=== PATIENT | male | born 1945 | race Caucasian/White ===

== ENCOUNTER 2016-06-26 10:57 | Day surgery (SDC) | payer MEDICARE ==
[~2016-06-26 10:57] MED LIST: ACETAMINOPHEN WITH CODEINE 1 EACH TABLET PO PRN; KETOROLAC TROMETHAMINE 15 MG/ML VIAL IV PRN; ceFAZolin SODIUM 1 GM in DEXTROSE 5 % IN WATER 100 ML IV PRN; oxyCODONE HCL/ACETAMINOPHEN 1 TAB TABLET PO PRN
--- OUTSIDE RECORDS SUMMARY | 2016-06-26 11:00 | XMS REPORT | Continuity of Care Document ---
:1945 Author Organization [facility] ([facility]) Address [address] [place] [address] Phone [phone] Care Team Providers Name Role Phone Aria Solomon Primary Care Provider [phone] Source Comments This disclosure is being made pursuant to the Care Everywhere program, applicable federal and state laws, and may not contain all informaitonavailable regarding this patient.[facility] ([facility]) Active Allergies and Adverse Reactions Allergen Noted Date Severity Reactions Comments Latex, Natural Rubber Urticaria (Hives) Non-Med Tape Urticaria (Hives) paper tape ok Penicillins Angioedema Tetanus Toxoid, Adsorbed Urticaria (Hives) Current Medications Prescription Sig. Disp. Refills Start Date End Date Status lisinopril (PRINIVIL) 10 take 10 mg by mouth Active mg tablet daily. METOPROLOL SUCCINATE PO Take 25 mg by mouth. Active pravastatin (PRAVACHOL) take 40 mg by mouth Active 40 mg tablet daily. ASPIRIN/MAG CARB/AL Take 81 mg by mouth. Active AMINOACET (ASPIRIN, BUFFERED PO) VIT A/VIT C/VIT take by mouth. Active E/ZINC/COPPER (VIT A,C,F-IURE-WTUDCR) 14,[id number] [id number] Cap MULTIVITAMINS take by mouth. Active (MULTI-VITAMIN HI-PO PO) Dextran 70-Hypromellose instill onto the Active (NATURAL TEARS, PF,) left eye 2 times 0.1-0.3 % Dpet daily. NAPROXEN SODIUM (ALEVE Take by mouth. Active PO) prednisoLONE acetate 1 % instill 1 Drop onto 5 mL 6 07/09/2011 Active ophthalmic suspension the left eye daily. Indications: PTK + corneal transplant Ranitidine HCl 300 mg Take by mouth. Active Cap Active Problems Problem Noted Date Epiretinal membrane, left eye 08/08/2010 Refractive error 08/08/2010 Presbyopia 08/08/2010 MGD (meibomian gland disease) 08/08/2010 Dry eye syndrome 08/08/2010 Retinal Detachment left eye; s/p surgical repair 12/13/2008 Overview: Partially mac on. 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 12/13/2008 Overview: 12/11/08 Os for PBK Pseudophakia both eyes 12/13/2008 Overview: OD OS Social History Tobacco Use Types Packs/Day Years Used Date Never Smoker Alcohol Use Drinks/Week oz/Week Comments No Last Filed Vital Signs Vital Sign Reading Time Taken Blood Pressure 117/70 10/28/2009 3:00 PM CDT Pulse 70 10/28/2009 3:00 PM CDT Temperature 37.1 C (98.8 F) 10/28/2009 2:25 PM CDT Respiratory Rate 16 10/28/2009 3:00 PM CDT Height 1.803 m (5' 11") 10/10/2009 4:26 PM CDT Weight 119.6 kg (263 lb 10.7 oz) 10/28/2009 12:28 PM CDT Body Mass Index 36.79 10/28/2009 12:28 PM CDT Oxygen Saturation 97% 10/28/2009 3:00 PM CDT Plan of Care Health Maintenance Due Date Last Done Comments Hepatitis B Vaccine (1 of 3 - Primary Series) 1945 Lipid Disorder Screening 1961 Colonoscopy 01/23/1993 Prostate Cancer Screening 1993 Zoster Vaccine 2003 Pneumococcal Vaccine (1 of 2 - PCV13) 01/25/2008 Influenza Vaccine: Seasonal (#1) 12/16/2015 Results from Last 3 Months Not on file
[2016-06-26] MEDS ORDERED: RINGERS SOLUTION,LACTATED 1,000 ML IV ONE ×3 (11:30→15:10)
[2016-06-26] MEDS: MORPHINE SULFATE 2 MG/ML DISP.SYRIN IV PRN ×2 (14:05→14:29)
[2016-06-26 15:51] VITALS: BP 144/79
== END 2016-06-26 10:58 | disposition home or self-care (01) ==
LOC: AMB 10:57
PROVIDERS: ATTEND Urology
PROC: BT1DZZZ Fluoroscopy of Right Kidney, Ureter and Bladder (ICD-10-PCS; 2016-06-26)
PROC: 0TP98DZ Removal of Intraluminal Device from Ureter, Via Natural or Artificial Opening Endoscopic (ICD-10-PCS; principal; 2016-06-26 12:00)
DX: N20.0 Calculus of kidney (principal); I10 Essential (primary) hypertension; E78.00 Pure hypercholesterolemia, unspecified; E66.9 Obesity, unspecified; Z68.37 Body mass index [BMI] 37.0-37.9, adult

== ENCOUNTER 2016-06-28 22:23 | Emergency (ER) | payer MEDICARE ==
[2016-06-28 22:35] VITALS: BP 144/92
--- NOTE | 2016-06-28 23:40 | ERNOTE ---
Abdominal HPI - Narrative Date of Service: 06/28/16 - General Chief Complaint: Constipation Time Seen by Provider: 06/28/16 23:36 Source: patient, family Exam Limitations: no limitations - Immun/Allergies/Home Medications Immunizatons: IMMUNIZATION HX Immunizations Up to Date Yes History of Influenza Vaccine No Allergies/Adverse Reactions: Allergies tetanus & diphtheria toxoids [Tetanus&Diphtheria Toxoid] Allergy (Intermediate, Verified 06/26/16 11:19) WHOLE ARM SWELLED UP Penicillins Allergy (Mild, Verified 06/26/16 11:19) Hives atorvastatin calcium [From Lipitor] Adverse Reaction (Mild, Verified 06/26/16 11 :19) Diarrhea levofloxacin [From Levaquin] Adverse Reaction (Mild, Verified 06/26/16 11:19) UPSET STOMACH tape Allergy (Mild, Uncoded 06/26/16 11:19) RASH Home Medications: HOME MEDICATIONS Lisinopril 10 mg PO DAILY 10/27/13 [Last Taken 06/26/16 09:00] Omeprazole [Prilosec] 40 mg PO DAILY 06/20/14 [Last Taken Unknown] Ascorbic Acid [Vitamin C] 500 mg PO DAILY 10/02/15 [Last Taken Unknown] Pravastatin Sodium [Pravachol] 20 mg PO HS 10/02/15 [Last Taken Unknown] Ferrous Sulfate, Dried [Iron] 159 mg PO Q2D 06/24/16 [Last Taken Unknown] Finasteride [Proscar] 5 mg PO DAILY 06/24/16 [Last Taken Unknown] Gabapentin [Neurontin] 300 mg PO TID 06/24/16 [Last Taken Unknown] Metoprolol Succinate [Toprol Xl] 50 mg PO DAILY 06/24/16 [Last Taken 06/26/16 09 :00] Oxybutynin Chloride [Ditropan] 5 mg PO TID PRN 06/24/16 [Last Taken Unknown] prednisoLONE ACETATE [Pred Forte 1%] 1 drop OP DAILY 06/24/16 [Last Taken Unknown] Bisacodyl [Dulcolax Suppository] 10 mg RC BID PRN #10 supp.rect 06/29/16 [Last Taken Unknown] Magnesium Citrate 295 ml PO BID #2 solution 06/29/16 [Last Taken Unknown] - History of Present Illness Date (Duration): 06/28/16 Time (Timing): 23:37 Timing: constant - "wenot were not indoor K did make sense oral contrast.Freedom Sims we have pushed from a cardiac Quality: moderate - radiologist will always want certain this is a CT with IV contrast and will get labs and x-ray and tolerate IV contrast Activities at Onset: other - patient 71-year-old male with large ureteral and kidney stone for which he had cystoscopy with attempted retrieval last Wednesday. Apparently they are unable to remove ureteral stone so they placed a stent. On Wednesday this week they reattempted cystoscopy with retrieval and again unable to remove large stone which they felt was embedded in the kidney itself. They did remove ureteral stone at that time. Patient here because he's had abdominal pain and fullness. He's had some loose stools on but no BM since that time. Because his abdomen is somewhat distended and that he might be constipated. He is also been developing nausea without vomiting over the last 24 hours. Patient has been using Tylenol No. 3 for pain relief as well as stool softeners. Modifying Factors - (Improves): Present: other - nothing has improved his abdominal fullness and pain Modifying Factors - (Worsens): Present: analgesics Associated Symptoms: Present: diarrhea-mucous - patient has passed a few loose stools on but no solid BM, nausea, vomiting - Patient's Past Medical History Patient History - Medical: GERD, Osteoarthritis, Other Patient History - Cardiac/Respiratory: Coronary Heart Disease, Hypertension, Hyperlipidemia, Myocardial Infarction, Other Patient History - Cancer: No Hx of Cancer Patient History - Surgical Procedures: Cataracts, Total Knee Replacement, Other Patient History - Other: None - Family History Mother Family History - Medical: , No pertinent hx Family History - Cardiac/Respiratory: Myocardial Infarction Family History - Cancer: No pertinent family hx Father Family History - Medical: , No pertinent hx Family History - Cardiac/Respiratory: Myocardial Infarction Family History - Cancer: No pertinent family hx Brother Family History - Medical: Diabetes Type 2 Family History - Cardiac/Respiratory: CVA/Stroke, Myocardial Infarction Family History - Cancer: No pertinent family hx - Social History Living Situations: spouse Abuse History: No History of abuse Psych History: No pertinent hx Smoking Status: Never smoker Have you smoked in the past 12 months: No Do you dip or chew tobacco: No Alcohol Use: none Drug Use: none - Immunizations Immunizations Up to Date: Yes History of Influenza Vaccine: No ED Progress - Date and Time Seen: Date and Time: 06/29/16 01:19 Patient last reviewed and patient has gradual increase in his creatinine without elevation of his BUN. Patient given 1 L normal saline here in the ER. CT scan performed abdomen and pelvis without contrast showing mild right hydronephrosis hydroureter and perinephric stranding suggestive of obstructive uropathy however no obstructing calculus seen. Borderline dilation proximal jejunal and a few colonic loops nonspecific probably incidental diverticulosis mild right colonic fecal retention. Prior to procedure rectal exam performed showing no impaction in the rectum. Patient will be discharged with recommendations to push fluids 6-8 large glasses of water daily with a repeat kidney function test in 1 week by primary care provider. For his constipation will provide magnesium citrate orally and Dulcolax suppository which he may use every 12 hours until he has a large BM. 06/29/16 01:24 Laboratory Results - last 24 hr 06/28/16 06/28/16 00:09 00:09 WBC 11.8 H RBC 4.70 Hgb 15.7 Hct 44.2 MCV 94.0 MCH 33.4 H MCHC 35.5 RDW 12.6 Plt Count 172 MPV 9.8 H Immature Gran % (Auto) 0.40 Immature Gran # (Auto) 0.05 H Neutrophils % 74.7 Lymphocytes % 12.7 L Monocytes % 10.7 H Eosinophils % 0.9 Basophils % 0.6 Nucleated RBC % 0.0 Neutrophils # 8.8 H Lymphocytes # 1.5 Monocytes # 1.3 H Eosinophils # 0.1 Absolute Basophils 0.1 Sodium 140 Plasma Sodium 141 Potassium 4.1 Chloride 103 Carbon Dioxide 27.7 Anion Gap 13.4 BUN 23 Creatinine 2.19 H D Est GFR (Non-Af Amer) 32 L D BUN/Creatinine Ratio 10.5 Random Glucose 145 H Calcium 9.3 Calcium Adj for Albumin 9.2 Total Bilirubin 1.1 AST 16 ALT 16 L Alkaline Phosphatase 70 Total Protein 7.4 Albumin 3.7 - Results and Orders Patient's Lab Results:: I have reviewed the patient's lab results. - Vital Signs Patient's Vital Signs:: I have reviewed the patient's vital signs. Vital Signs: Vital Signs 06/28/16 22:30 Temperature 36.8 C Pulse Rate 89 Respiratory 16 Rate Blood Pressure 144/92 O2 Sat by Pulse 95 Oximetry - Progress/Reassessment Chief Complaint: Constipation Departure - Departure Clinical Impression: Constipation, Renal failure (ARF), acute on chronic Disposition: Home self-care Condition: Good Instructions: Constipation, , Acute Kidney Injury Additional Instructions: Please push 6-8 glasses of water daily. He will need to be reexamined with a repeat kidney function test by a primary doctor in 1 week. For constipation take magnesium citrate orally while taking Dulcolax suppository rectally. If no large bowel movement repeat in 12 hours. Follow-up with the primary doctor or here if still having problems 24-48 hours. Referrals: Aria Solomon MD [Primary Care Provider] - Prescriptions: Bisacodyl [Dulcolax Suppository] 10 mg RC BID PRN #10 supp.rect PRN Reason: Constipation Magnesium Citrate 295 ml PO BID #2 solution
--- OUTSIDE RECORDS SUMMARY | 2016-06-28 23:45 | XMS REPORT | Continuity of Care Document ---
:1945 Author Organization [facility] ([facility]) Address [address] [place] [address] Phone [phone] Care Team Providers Name Role Phone Aria Solomon Primary Care Provider [phone] Source Comments This disclosure is being made pursuant to the Care Everywhere program, applicable federal and state laws, and may not contain all informaitonavailable regarding this patient.[facility] ([facility]) Active Allergies and Adverse Reactions Allergen Noted [...] C/VIT take by mouth. Active E/ZINC/COPPER (VIT A,C,P-LUMW-PDGXSS) 14,320-226-200 [id number] Cap MULTIVITAMINS take by mouth. Active (MULTI-VITAMIN [...]
[2016-06-29 00:13] LABS: Hematocrit 44.2 % (42.0-52.0); Hemoglobin 15.7 gm/dL (13.5-18.0); Mean Corpuscular Hemoglobin 33.4 pg (27-31); Mean Corpuscular Hgb Conc 35.5 g/dl (32-36); Mean Platelet Volume 9.8 fl (6.0-9.5); Neutrophil # 8.8 K/mm3 (1.3-6.0); Neutrophil % 74.7 % (42-75.0); Platelet Count 172 K/mm3 (150-450); Red Cell Distribution Width 12.6 % (11.5-14.0); White Blood Count 11.8 K/mm3 (4.0-10.5)
[2016-06-29 00:26] LABS: Albumin * 3.7 gm/dl (3.4-5.0); Anion Gap 13.4 mmol/L (6.8-13.8); BUN/Creatinine Ratio 10.5 (9.0-21.6); Bilirubin, Total 1.1 mg/dL (0.0-1.1); Ca. Corrected For Albumin 9.2 mg/dL (8.4-10.2); Calcium * 9.3 mg/dL (7.9-10.9); Carbon Dioxide 27.7 mmol/L (24-32.6); Potassium 4.1 mmol/L (3.4-4.6); Total Protein 7.4 gm/dL (6.2-8.2)
[2016-06-29] MEDS ORDERED: NORMAL SALINE 1,000 ML IV PRN (00:48)
[2016-06-29] MEDS ORDERED: ONDANSETRON HCL/PF 2 MG/ML VIAL IV ONE (00:48)
[2016-06-29] MEDS ORDERED: ONDANSETRON HCL/PF 2 MG/ML VIAL ONE (00:57)
== END 2016-06-29 01:35 | disposition home or self-care (01) ==
LOC: ER 22:23
DX: K59.00 Constipation, unspecified (principal); N17.9 Acute kidney failure, unspecified; N18.9 Chronic kidney disease, unspecified

== ENCOUNTER 2016-11-03 02:48 | Emergency (ER) | payer MEDICARE ==
[2016-11-03] MEDS ORDERED: KETOROLAC TROMETHAMINE 30 MG/ML VIAL IV ONE (03:07)
[2016-11-03] MEDS ORDERED: NORMAL SALINE 1,000 ML IV ONE (03:08)
[2016-11-03] MEDS ORDERED: TAMSULOSIN HCL 0.4 MG CAP.SR.24H PO ONE ×2 (03:08→03:11)
[2016-11-03] MEDS ORDERED: ONDANSETRON HCL/PF 2 MG/ML VIAL IV ONE (03:09)
[2016-11-03] MEDS ORDERED: KETOROLAC TROMETHAMINE 30 MG/ML VIAL ONE (03:11)
[2016-11-03] MEDS ORDERED: ONDANSETRON HCL/PF 2 MG/ML VIAL ONE (03:11)
[2016-11-03 03:19] LABS: Hematocrit 46.1 % (42.0-52.0); Hemoglobin 16.2 gm/dL (13.5-18.0); Mean Cell Volume 93.9 fl (78-100); Mean Corpuscular Hgb Conc 35.1 g/dl (32-36); Mean Platelet Volume 9.1 fl (6.0-9.5); Neutrophil # 3.5 K/mm3 (1.3-6.0); Neutrophil % 57.8 % (42-75.0); Platelet Count 168 K/mm3 (150-450); Red Blood Count 4.91 M/mm3 (4.7-6.0); White Blood Count 6.1 K/mm3 (4.0-10.5)
[2016-11-03 03:24] LABS: Urine Bilirubin Negative (NEGATIVE); Urine Blood 250 /ul (NEGATIVE); Urine Ketone Negative (NEGATIVE); Urine Nitrite Negative (NEGATIVE); Urine Protein 15 mg/dL (NEGATIVE); Urine Specific Gravity 1.025 SP.GR. (1.005-1.030); Urine Urobilinogen Normal (NORMAL); Urine pH 5.5 pH (5.0-7.0)
[2016-11-03 03:33] LABS: BUN/Creatinine Ratio 15.6 (9.0-21.6); Calcium * 9.3 mg/dL (7.9-10.9); Carbon Dioxide 28.3 mmol/L (24-32.6); Potassium 4.3 mmol/L (3.4-4.6); Total Protein 7.6 gm/dL (6.2-8.2)
[2016-11-03 03:34] LABS: Bilirubin, Total 0.8 mg/dL (0.0-1.1)
[2016-11-03 03:48] LABS: Urine Appearance Slightly Cloudy; Urine Bacteria TRACE; Urine Color Dark Yellow; Urine RBC >50 /hpf (0-5); Urine WBC None Seen /hpf (0-5)
--- NOTE | 2016-11-03 04:20 | ERNOTE ---
ER Male HPI Date of Service: 11/03/16 Stated Complaint: THINKS PASSING KIDNEY STONE Time Seen by Provider: 11/03/16 03:58 Source: patient, family Exam Limitations: no limitations Immunizations: IMMUNIZATION HX Immunizations Up to Date Yes History of Influenza Vaccine No Hx Pneumococcal Vaccination No Allergies/Adverse Reactions: Allergies tetanus and diphtheria toxoids [Tetanus&Diphtheria Toxoid] Allergy (Intermediate , Verified 11/03/16 02:57) WHOLE ARM SWELLED UP Penicillins Allergy (Mild, Verified 11/03/16 02:57) Hives atorvastatin calcium [From Lipitor] Adverse Reaction (Mild, Verified 11/03/16 02 :57) Diarrhea levofloxacin [From Levaquin] Adverse Reaction (Mild, Verified 11/03/16 02:57) UPSET STOMACH tape Allergy (Mild, Uncoded 11/03/16 02:57) RASH Home Medications: HOME MEDICATIONS Lisinopril 10 mg PO DAILY 10/27/13 [Last Taken 06/26/16 09:00] Omeprazole [Prilosec] 40 mg PO DAILY 06/20/14 [Last Taken Unknown] Ascorbic Acid [Vitamin C] 500 mg PO DAILY 10/02/15 [Last Taken Unknown] Pravastatin Sodium [Pravachol] 20 mg PO HS 10/02/15 [Last Taken Unknown] Ferrous Sulfate, Dried [Iron] 159 mg PO Q2D 06/24/16 [Last Taken Unknown] Finasteride [Proscar] 5 mg PO DAILY 06/24/16 [Last Taken Unknown] Metoprolol Succinate [Toprol Xl] 50 mg PO DAILY 06/24/16 [Last Taken 06/26/16 09 :00] prednisoLONE ACETATE [Pred Forte 1%] 1 drop OP DAILY 06/24/16 [Last Taken Unknown] Acetaminophen with Codeine [Tylenol with Codeine #3 Tablet] 1 - 2 tab PO Q6H PRN #14 tab 11/03/16 [Last Taken Unknown] Aspirin [Aspir-Low] 81 mg PO 11/03/16 [Last Taken Unknown] Hydrochlorothiazide [Hydrodiuril] 25 mg PO DAILY #30 tab 11/03/16 [Last Taken Unknown] Ondansetron [Zofran Odt] 4 mg PO Q6H PRN #7 tab 11/03/16 [Last Taken Unknown] - History of Present Illness Narrative: LEFT FLANK PAIN STARTING ABOUT 2300 YESTERDAY LIKE HE HAD IN THE PAST WITH RENAL STONES. HE DOES HAVE NAUSEA. HE LAST SAW HIS UROLOGIST IN [place] ABOUT A YEAR AGO AND WAS TOLD THAT HE HAD NON OBSTRUCTING STONES IN THE KIDNEY ( "SEVEN") AND ALL BUT ONE SHOULD PASS IF THEY MOVED OUT OF THE KIDNEY. THE OTHER WAS LARGE AND ADHERENT TO THE WALL AND SHOULD NO COME LOOSE. Review of Systems - Review of Systems Constitutional: Present: See HPI EYE: Present: no symptoms reported ENT: Present: no symptoms reported Respiratory: Present: no symptoms reported Cardiology: Present: no symptoms reported Gastrointestinal/Abdominal: Present: See HPI, nausea Genitourinary: Present: See HPI, other - FLANK PAIN Musculoskeletal: Present: no symptoms reported Skin: Present: no symptoms reported Neurological: Present: no symptoms reported Endocrine: Present: no symptoms reported Hematologic/Lymphatic: Present: no symptoms reported Psych: Present: no symptoms reported All Other Systems: All systems neg except as marked - Patient's Past Medical History Patient History - Medical: GERD, Osteoarthritis, Other Patient History - Cardiac/Respiratory: Coronary Heart Disease, Hypertension, Hyperlipidemia, Myocardial Infarction, Other Patient History - Cancer: No Hx of Cancer Patient History - Surgical Procedures: Back Surgery, Cataracts, Total Knee Replacement, Other Patient History - Other: None - Family History Mother Family History - Medical: , No pertinent hx Family History - Cardiac/Respiratory: Myocardial Infarction Family History - Cancer: No pertinent family hx Father Family History - Medical: , No pertinent hx Family History - Cardiac/Respiratory: Myocardial Infarction Family History - Cancer: No pertinent family hx Brother Family History - Medical: Diabetes Type 2 Family History - Cardiac/Respiratory: CVA/Stroke, Myocardial Infarction Family History - Cancer: No pertinent family hx - Social History Living Situations: spouse Abuse History: No History of abuse Psych History: No pertinent hx Smoking Status: Never smoker Have you smoked in the past 12 months: No Do you dip or chew tobacco: No Alcohol Use: none Drug Use: none - Immunizations Immunizations Up to Date: Yes Hx Pneumococcal Vaccination: No History of Influenza Vaccine: No Physical Exam - Physical Exam General Appearance: Present: wd/wn, alert, moderate distress Respiratory: Present: no respiratory distress, normal breath sounds, no accessory muscle use, chest nontender, lungs clear Cardiovascular/Chest: Present: regular rate, rhythm, no murmur, normal peripheral pulses Gastrointestinal/Abdominal: Present: normal bowel sounds, nontender, nondistended, soft, no organomegaly Back Exam: Present: normal inspection, normal range of motion, no CVA tenderness - THOUGH THE PAIN IS IN THE LEFT FLANK IT IS NOT MADE WORSE BY CVA THUMP, no vertebral tenderness Neurological Exam: Present: alert, oriented Skin Exam: Present: normal color ED Progress - Results and Orders Patient's Lab Results:: I have reviewed the patient's lab results. Results and Orders: CBC = NL. CREAT = 1.4, URINE = + FOR BLOOD . - Vital Signs Patient's Vital Signs:: I have reviewed the patient's vital signs. Vital Signs: Vital Signs 11/03/16 02:51 Temperature 36.3 C L Pulse Rate 68 Respiratory 16 Rate Blood Pressure 198/84 O2 Sat by Pulse 99 Oximetry - CT/Ultrasound CT/Ultrasound Narrative: CT ABD / PEL / ARGUS = LEFT OBSTRUCTIVE UROPATHY WITH SL HYDRONEPHROSIS SECONDARY TO 2 MM UVJ CALCULUS. OTHER INERRENAL STONES . AN LEFT RENAL CYST. SMALL H.H.. LARGE PROSTATE. DIVERTICULOSIS , REDUNDANT COLON WITH MILD FECAL RETENTION. NL APPENDIX . CHOLELITHIASIS - Progress/Reassessment Chief Complaint: Genitourinary Problem Progress:: Improved Departure Clinical Impression: Left ureteral stone - Departure Disposition: Home Follow Up Needed Condition: Good Instructions: Renal Colic, [id number], Kidney Stones, [id number] Referrals: Aria Solomon MD [Primary Care Provider] - Prescriptions: Acetaminophen with Codeine [Tylenol with Codeine #3 Tablet] 1 - 2 tab PO Q6H PRN #14 tab PRN Reason: Pain Hydrochlorothiazide [Hydrodiuril] 25 mg PO DAILY #30 tab Ondansetron [Zofran Odt] 4 mg PO Q6H PRN #7 tab PRN Reason: Vomiting
[2016-11-03] MEDS ORDERED: MORPHINE SULFATE 4 MG/ML SYRG IV ONE (04:47)
[2016-11-03] MEDS ORDERED: MORPHINE SULFATE 4 MG/ML SYRG ONE (04:47)
[2016-11-03 05:10] VITALS: BP 194/82
== END 2016-11-03 05:08 | disposition home or self-care (01) ==
LOC: ER 02:48
DX: N20.1 Calculus of ureter (principal); K21.9 Gastro-esophageal reflux disease without esophagitis; M19.90 Unspecified osteoarthritis, unspecified site; I25.2 Old myocardial infarction; I10 Essential (primary) hypertension; E78.5 Hyperlipidemia, unspecified; Z87.442 Personal history of urinary calculi
CPT/HCPCS: 36415; 74176; 80053; 81001; 85025; 96374; 96375; 99284; J2405

== ENCOUNTER 2017-03-13 20:06 | Emergency (ER) | payer MEDICARE ==
[2017-03-13 20:14] VITALS: BP 164/94
[2017-03-13] MEDS ORDERED: KETOROLAC TROMETHAMINE 30 MG/ML VIAL IM ONE (20:39)
[2017-03-13] MEDS ORDERED: ORPHENADRINE CITRATE 30 MG/ML VIAL IM ONE (20:39)
--- NOTE | 2017-03-13 20:41 | ERNOTE ---
Back Pain ER HPI Date of Service: 03/13/17 Presenting Symptoms: injury/pain to back Time Seen by Provider: 03/13/17 20:24 Immunizations: IMMUNIZATION HX Immunizations Up to Date Yes History of Influenza Vaccine No Hx Pneumococcal Vaccination No Allergies/Adverse Reactions: Allergies tetanus and diphtheria toxoids [Tetanus&Diphtheria Toxoid] Allergy (Intermediate , Verified 03/13/17 20:14) WHOLE ARM SWELLED UP Penicillins Allergy (Mild, Verified 03/13/17 20:14) Hives atorvastatin calcium [From Lipitor] Adverse Reaction (Mild, Verified 03/13/17 20 :14) Diarrhea levofloxacin [From Levaquin] Adverse Reaction (Mild, Verified 03/13/17 20:14) UPSET STOMACH tape Allergy (Mild, Uncoded 03/13/17 20:14) RASH Home Medications: HOME MEDICATIONS Lisinopril 10 mg PO DAILY 10/27/13 [Last Taken 06/26/16 09:00] Omeprazole [Prilosec] 40 mg PO DAILY 06/20/14 [Last Taken Unknown] Ascorbic Acid [Vitamin C] 500 mg PO DAILY 10/02/15 [Last Taken Unknown] Pravastatin Sodium [Pravachol] 20 mg PO HS 10/02/15 [Last Taken Unknown] Ferrous Sulfate, Dried [Iron] 159 mg PO Q2D 06/24/16 [Last Taken Unknown] Finasteride [Proscar] 5 mg PO DAILY 06/24/16 [Last Taken Unknown] Metoprolol Succinate [Toprol Xl] 50 mg PO DAILY 06/24/16 [Last Taken 06/26/16 09 :00] prednisoLONE ACETATE [Pred Forte 1%] 1 drop OP DAILY 06/24/16 [Last Taken Unknown] Acetaminophen with Codeine [Tylenol with Codeine #3 Tablet] 1 - 2 tab PO Q6H PRN #14 tab 11/03/16 [Last Taken Unknown] Aspirin [Aspir-Low] 81 mg PO 11/03/16 [Last Taken Unknown] Hydrochlorothiazide [Hydrodiuril] 25 mg PO DAILY #30 tab 11/03/16 [Last Taken Unknown] Ondansetron [Zofran Odt] 4 mg PO Q6H PRN #7 tab 11/03/16 [Last Taken Unknown] traMADol HCL [Tramadol HCl] 50 mg PO TID #30 tablet 03/13/17 [Last Taken Unknown ] Narrative: Pt. comes in with c/o R mid back pain for three days. Pt. denies any SOB, CP, NVD, fever, recent illness or injury. Pt. has recent records for cough by PCP but states that he was seen for back pain at that time and pt. was found to not have anything at that time. Pt. denies any alleviating factors but states that movement exacerbates the pain and deep breathing. Review of Systems - Review of Systems Constitutional: Present: no symptoms reported. Absent: recent illness, fever, chills, weakness, fatigue, malaise EYE: Present: no symptoms reported ENT: Present: no symptoms reported Respiratory: Present: no symptoms reported. Absent: shortness of breath, cough , wheezing Cardiology: Present: no symptoms reported. Absent: chest pain, palpitations, edema Gastrointestinal/Abdominal: Present: no symptoms reported. Absent: nausea, vomiting, diarrhea Genitourinary: Present: no symptoms reported. Absent: frequency, decreased urinary output Musculoskeletal: Present: back pain - mid back R greater than L. Absent: joint pain Skin: Present: no symptoms reported Neurological: Present: no symptoms reported. Absent: headache, dizziness/light- headedness, numbness, tingling All Other Systems: All systems neg except as marked - Patient's Past Medical History Patient History - Medical: GERD, Osteoarthritis Patient History - Cardiac/Respiratory: Coronary Heart Disease, Hypertension, Hyperlipidemia, Myocardial Infarction, Other Patient History - Cancer: No Hx of Cancer Patient History - Surgical Procedures: Back Surgery, Cataracts, Total Knee Replacement Patient History - Other: None - Family History Mother Family History - Medical: , No pertinent hx Family History - Cardiac/Respiratory: Myocardial Infarction Family History - Cancer: No pertinent family hx Father Family History - Medical: , No pertinent hx Family History - Cardiac/Respiratory: Myocardial Infarction Family History - Cancer: No pertinent family hx Brother Family History - Medical: Diabetes Type 2 Family History - Cardiac/Respiratory: CVA/Stroke, Myocardial Infarction Family History - Cancer: No pertinent family hx - Social History Living Situations: home Abuse History: No History of abuse Psych History: No pertinent hx - Immunizations Immunizations Up to Date: Yes Hx Pneumococcal Vaccination: No History of Influenza Vaccine: No Physical Exam - Physical Exam General Appearance: Present: wd/wn, alert, no apparent distress Head Exam: Present: normal inspection, no evidence of injury Eye Exam: Normal inspection: right, PERRL: right - left eye corneal transplant, EOMI: bilateral Neck: Present: normal inspection, nontender, supple, full range of motion Respiratory: Present: no respiratory distress, normal breath sounds, no accessory muscle use, chest nontender, lungs clear Cardiovascular/Chest: Present: regular rate, rhythm, no murmur, normal peripheral pulses Back Exam: Present: no vertebral tenderness, CVA tenderness (R), other - R lateral intercostal pain and tenderness with palpation. Absent: muscle spasm Extremity Exam: Present: normal inspection Neurological Exam: Present: alert, oriented, normal mood/affect, no motor/ sensory deficits Skin Exam: Present: normal color, warm/dry. Absent: pallor, skin rash ED Progress - Results and Orders Patient's Lab Results:: I have reviewed the patient's lab results. - Vital Signs Patient's Vital Signs:: I have reviewed the patient's vital signs. Vital Signs: Vital Signs 03/13/17 20:10 Temperature 36.6 C Pulse Rate 70 Respiratory 17 Rate Blood Pressure 164/94 O2 Sat by Pulse 100 Oximetry - X-Ray X-Ray #1 X-Ray: thoracic Interpretation: Reviewed by me X-ray Comments: severe spondylolithesis t10 and -L 1 with other multiple levels of DDD. - Progress/Reassessment Chief Complaint: Back Pain Departure Clinical Impression: Spondylolisthesis Qualifiers: Spinal region: thoracolumbar Qualified Code(s): M43.15 - Spondylolisthesis, thoracolumbar region Degenerative disc disease Qualifiers: Spinal region: thoracic Qualified Code(s): M51.34 - Other intervertebral disc degeneration, thoracic region - Departure Disposition: Home self-care Condition: Good Instructions: Degenerative Disk Disease Additional Instructions: Please follow up with primary provider to discuss further treatment and possible referrals. Referrals: Aria Solomon MD [Primary Care Provider] - Prescriptions: traMADol HCL [Tramadol HCl] 50 mg PO TID #30 tablet
[2017-03-13] MEDS ORDERED: ORPHENADRINE CITRATE 30 MG/ML VIAL ONE (20:53)
[2017-03-13] MEDS ORDERED: KETOROLAC TROMETHAMINE 30 MG/ML VIAL ONE (20:53)
[2017-03-13 21:02] LABS: Hematocrit 41.5 % (42.0-52.0); Hemoglobin 14.9 gm/dL (13.5-18.0); Mean Cell Volume 93.3 fl (78-100); Mean Corpuscular Hemoglobin 33.5 pg (27-31); Mean Corpuscular Hgb Conc 35.9 g/dl (32-36); Mean Platelet Volume 9.2 fl (6.0-9.5); Neutrophil # 3.1 K/mm3 (1.3-6.0); Neutrophil % 49.8 % (42-75.0); Platelet Count 199 K/mm3 (150-450); Red Blood Count 4.45 M/mm3 (4.7-6.0); Red Cell Distribution Width 12.3 % (11.5-14.0); White Blood Count 6.3 K/mm3 (4.0-10.5)
[2017-03-13 21:18] LABS: Urine Appearance Clear; Urine Bilirubin Negative (NEGATIVE); Urine Color Yellow; Urine Ketone Negative (NEGATIVE)
[2017-03-13 21:18] LABS: Albumin * 4.1 gm/dl (3.4-5.0); BUN/Creatinine Ratio 15.9 (9.0-21.6); Bilirubin, Total 0.6 mg/dL (0.0-1.1); Ca. Corrected For Albumin 8.5 mg/dL (8.4-10.2); Calcium * 8.9 mg/dL (7.9-10.9); Carbon Dioxide 21.9 mmol/L (24-32.6); Potassium 3.9 mmol/L (3.4-4.6); Total Protein 7.5 gm/dL (6.2-8.2)
[2017-03-13 21:19] LABS: Urine Bacteria None Seen; Urine Blood Negative /ul (NEGATIVE); Urine Nitrite Negative (NEGATIVE); Urine Protein Negative (NEGATIVE); Urine RBC None Seen /hpf (0-5); Urine Urobilinogen Normal (NORMAL); Urine WBC None Seen /hpf (0-5); Urine pH 5.5 pH (5.0-7.0)
== END 2017-03-13 22:23 | disposition home or self-care (01) ==
LOC: ER 20:06
DX: M43.15 Spondylolisthesis, thoracolumbar region (principal); M51.34 Other intervertebral disc degeneration, thoracic region

== ENCOUNTER 2020-07-31 21:07 | Observation (INO) ==
--- NOTE | 2020-07-31 21:18 | ERNOTE ---
Dyspnea - General Presenting Symptoms: shortness of breath Time Seen by Provider: 07/31/20 21:11 Source: patient Exam Limitations: no limitations - Immun/Allergies/Home Medications Immunizations: IMMUNIZATION HX Immunizations Up to Date Yes History of Influenza Vaccine No Hx Pneumococcal Vaccination More Information Required Allergies/Adverse Reactions: Allergies tetanus and diphtheria toxoids [Tetanus&Diphtheria Toxoid] Allergy (Intermediate, Verified 07/31/20 21:21) WHOLE ARM SWELLED UP Penicillins Allergy (Mild, Verified 07/31/20 21:21) Hives atorvastatin calcium [From Lipitor] Adverse Reaction (Mild, Verified 07/31/20 21:21) Diarrhea levofloxacin [From Levaquin] Adverse Reaction (Mild, Verified 07/31/20 21:21) UPSET STOMACH tape Allergy (Mild, Uncoded 07/31/20 21:21) RASH Home Medications: HOME MEDICATIONS Ascorbic Acid [Vitamin C] 500 mg PO DAILY 10/02/15 [Last Taken Unknown] Ferrous Sulfate, Dried [Iron] 159 mg PO Q2D 06/24/16 [Last Taken Unknown] Aspirin [Aspir-Low] 81 mg PO DAILY 11/03/16 [Last Taken Unknown] blood sugar diagnostic See Dose Instructions .ROUTE .MEDSUPPLY #20 ea 11/17/17 [Last Taken Unknown] brimonidine 0.2 % eye drops 2 drp OP DAILY 11/17/17 [Last Taken Unknown] lancets 28 gauge See Dose Instructions .ROUTE .MEDSUPPLY #25 ea 11/17/17 [Last Taken Unknown] rosuvastatin 20 mg tablet 20 mg PO DAILY 11/17/17 [Last Taken Unknown] vitamin E (dl, acetate) 400 unit capsule 400 unit PO DAILY 11/17/17 [Last Taken Unknown] metoprolol succinate 50 mg tablet,extended release 24 hr 25 mg PO DAILY tab 06/13/18 [Last Taken Unknown] dorzolamide 2 % eye drops 1 drp OP DAILY ml 02/17/19 [Last Taken Unknown] fluorometholone 0.1 % eye drops,suspension 2 drp OP DAILY ml 02/17/19 [Last Taken Unknown] lancets 28 gauge See Dose Instructions .ROUTE .MEDSUPPLY #100 ea 11/01/19 [Last Taken Unknown] blood sugar diagnostic See Rx Instructions .ROUTE .COMPLEX #100 unknown measurement unit code: strip 10/26/20 [Last Taken Unknown] Lisinopril [Prinivil] 10 mg PO DAILY 07/31/20 [Last Taken Unknown] albuterol sulfate 90 mcg/actuation aerosol inhaler 1 - 2 puff INHALATION Q4H PRN #1 inhaler 07/31/20 [Last Taken Unknown] glipiZIDE [Glipizide] 5 mg PO BID 07/31/20 [Last Taken Unknown] - History of Present Illness Narrative: He states he has been short of breath for the past 2 to 3 days and worsening. Severity: moderate Frequency of episodes: Reports: occassional episodes Review of Systems - Review of Systems Constitutional: Absent: recent illness EYE: Absent: vision changes ENT: Absent: nose congestion, nasal drainage Respiratory: Present: shortness of breath, wheezing Cardiology: Absent: chest pain, palpitations Gastrointestinal/Abdominal: Absent: nausea, vomiting Musculoskeletal: Absent: back pain, muscle pain Neurological: Absent: headache, dizziness/light-headedness Endocrine: Absent: excessive sweating Medical History (Last Reviewed 07/31/20 @ 21:12 by Renzo Martinez DO) Back pain Onset Date: Unknown COPD (chronic obstructive pulmonary disease) Diabetes type 2, controlled Onset Date: 11/08/17 GERD (gastroesophageal reflux disease) Onset Date: 08/24/13 Hyperlipidemia Onset Date: Unknown Hypertension Onset Date: Unknown Surgical History: Surgical History (Last Reviewed 07/31/20 @ 21:12 by Renzo Martinez DO) History of back surgery Onset Date: 06/18/14 Foster left L4-L5 hemilamenectomy, L4-5 L5-S1 partial facetecomy herniated disc History of cardiac catheterization Onset Date: 09/10/00 History of carpal tunnel release Onset Date: 05/23/14 History of colonoscopy Onset Date: 10/07/15 History of cornea transplant Onset Date: 2007 2016 left eye History of coronary artery bypass graft x 3 Onset Date: ~02/09/99 History of esophagogastroduodenoscopy Onset Date: 09/27/15 History of knee replacement procedure of left knee Onset Date: Unknown History of knee replacement procedure of right knee Onset Date: ~2005 Family History: Family History (Last Reviewed 07/31/20 @ 21:12 by Renzo Martinez DO) Father , age 56 [place] Myocardial infarction Mother , age 80 [place] Myocardial [place] Brother , 1 age 63 AAA, 1 age 83 unknown No problems noted. Sister COPD (chronic obstructive pulmonary disease) Diabetes Social History: (Last Reviewed 07/31/20 @ 21:12 by Renzo Martinez DO) Social History: adopted: No foster care: No snf: No Marital status: lives independently: No household members: spouse number of children: 4 caregiver/support person: No current occupational status: retired Highest level of school completed/degree received: high school graduate Service: No Tobacco: Smoking Status: Never smoker Alcohol: alcohol intake: never Substance Use: substance use type: does not use Dietary Habits: caffeine: Yes Physical Exam - Physical Exam General Appearance: Present: wd/wn, alert, no apparent distress Head Exam: Present: normal inspection, no evidence of injury Neck: Present: normal inspection, nontender Respiratory: Present: no respiratory distress, no accessory muscle use, wheezing - right base Cardiovascular/Chest: Present: tachycardia Back Exam: Present: normal inspection, normal range of motion, no vertebral tenderness Extremity Exam: Present: normal inspection, normal range of motion, no edema Neurological Exam: Present: alert, oriented, normal mood/affect Skin Exam: Present: normal color, warm/dry Lymphatic Exam: Present: no adenopathy Progress - Results and Orders Patient's Lab Results:: I have reviewed the patient's lab results. - Vital Signs Patient's Vital Signs:: I have reviewed the patient's vital signs. - EKG EKG #1 EKG: atrial fibrillation - With RVR at 121 EKG read: Interp. by me - X-Ray X-Ray #1 X-Ray: chest Interpretation: Interp. by me X-ray Comments: Bilateral pulmonary edema. Mild cardiomegaly. No specific infiltrate or effusion. No pneumothorax. Bony elements appear intact - Progress/Reassessment Progress Note-Subjective: 07/31/20 22:[address] Martinez he agrees with admission for new onset A. fib and CHF Departure Clinical Impression: Atrial fibrillation Qualifiers: Atrial fibrillation type: unspecified Qualified Code(s): I48.91 - Unspecified atrial fibrillation CHF (congestive heart failure) Qualifiers: Heart failure type: systolic Heart failure chronicity: acute Qualified Code(s): I50.21 - Acute systolic (congestive) heart failure - Departure Disposition: Still a patient Condition: Good Referrals: Aria Solomon MD [Primary Care Provider] -
[2020-07-31 21:41] LABS: Hematocrit 45.3 % (42.0-52.0); Hemoglobin 14.9 gm/dL (13.5-18.0); Mean Cell Volume 100.9 fl (78-100); Mean Corpuscular Hemoglobin 33.2 pg (27-31); Mean Corpuscular Hgb Conc 32.9 g/dl (32-36); Mean Platelet Volume 9.8 fl (8-11.3); Neutrophil # 3.1 K/mm3 (1.3-6.0); Neutrophil % 55.6 % (42-75.0); Platelet Count 172 K/mm3 (150-450); Red Blood Count 4.49 M/mm3 (4.7-6.0); Red Cell Distribution Width 12.9 % (11.5-14.0); White Blood Count 5.6 K/mm3 (4.0-10.5)
[2020-07-31 22:00] LABS: Troponin I Less than 0.017 ng/mL (0.00-0.10)
[2020-07-31 22:02] LABS: ALT 30 U/L (19-67); AST 22 U/L (0-48); Albumin * 3.8 gm/dl (3.4-5.0); Alkaline Phosphatase * 86 U/L (50-170); Anion Gap 16.7 mmol/L (6.8-13.8); BNP * 3884 pg/mL (5-650); BUN/Creatinine Ratio 14.7 (9.0-21.6); Bilirubin, Total 0.6 mg/dL (0.0-1.1); Blood Urea Nitrogen 27 mg/dL (6-23); Calcium * 9.2 mg/dL (7.9-10.9); Carbon Dioxide 22.8 mmol/L (24-32.6); Chloride 106 mmol/L (97-106); Glucose * 188 mg/dL (70-110); Potassium 4.5 mmol/L (3.4-4.6); Sodium 141 mmol/L (132-142); Total Protein 7.2 gm/dL (6.2-8.2)
[2020-07-31] MEDS ORDERED: FUROSEMIDE 10 MG/ML VIAL IV ONE (22:14)
[2020-07-31] MEDS ORDERED: ENOXAPARIN SODIUM 100 MG/ML SYRG SC SCH (22:30)
[2020-08-01] MEDS: LISINOPRIL 10 MG TABLET PO SCH ×2 (08:57→09:04)
[2020-08-01] MEDS: METOPROLOL SUCCINATE 50 MG TABLET.SA PO SCH ×2 (08:57→09:04)
[2020-08-01] MEDS ORDERED: DORZOLAMIDE HCL 100 DROP BTL OP SCH (09:00)
[2020-08-01] MEDS ORDERED: BRIMONIDINE TARTRATE 50 DROP BTL OP SCH (09:00)
[2020-08-01] MEDS ORDERED: ASPIRIN 81 MG TABLET.DR PO SCH (09:00)
[2020-08-01] MEDS ORDERED: FLUOROMETHOLONE OP SCH (09:00)
[2020-08-01] MEDS ORDERED: glipiZIDE 5 MG TABLET PO SCH (09:00)
[2020-08-01] MEDS ORDERED: ENOXAPARIN SODIUM 100 MG/ML SYRG SC SCH (11:00)
--- NOTE | 2020-08-01 12:45 | HPDIS ---
Chief Complaint - Chief Complaint Date of Service: 08/01/20 Time of Service: 12:31 Chief Complaint: Shortness of breath History of Present Illness: Parish is a 75 yo male that presents to the [facility] ER with shortness of breath for the last few days. He denies any changes to medication, diet, or activity. He avoids sodium. He has noticed a 4lb weight gain in the last couple days. He has no chest pain. Medical History (Last Updated 08/01/20 @ 00:25 by Polly Knapp RN) Back pain Onset Date: Unknown COPD (chronic obstructive pulmonary disease) Diabetes type 2, controlled Onset Date: 11/08/17 GERD (gastroesophageal reflux disease) Onset Date: 08/24/13 Hyperlipidemia Onset Date: Unknown Hypertension Onset Date: Unknown Retinal detachment (Resolved) Surgical History: Surgical History (Last Reviewed 07/31/20 @ 21:21 by Latesha Tucker RN) History of back surgery Onset Date: 06/18/14 Foster left L4-L5 hemilamenectomy, L4-5 L5-S1 partial facetecomy herniated disc History of cardiac catheterization Onset Date: 09/10/00 History of carpal tunnel release Onset Date: 05/23/14 History of colonoscopy Onset Date: 10/07/15 History of cornea transplant Onset Date: 2007 2016 left eye History of coronary artery bypass graft x 3 Onset Date: ~02/09/99 History of esophagogastroduodenoscopy Onset Date: 09/27/15 History of knee replacement procedure of left knee Onset Date: Unknown History of knee replacement procedure of right knee Onset Date: ~2005 Family History: Family History (Last Reviewed 07/31/20 @ 21:22 by Latesha Tucker RN) Father , [place] 56 [place] Myocardial infarction Mother , age 80 [place] Myocardial infarction Brother , 1 age 63 AAA, 1 age 83 unknown No problems noted. Sister Diabetes COPD (chronic obstructive pulmonary disease) Social History: (Last Reviewed 07/31/20 @ 21:22 by Latesha Tucker RN) Social History: adopted: No foster care: No fci: No Marital status: lives independently: No household members: spouse number of children: 4 caregiver/support person: No current occupational status: retired Highest level of school completed/degree received: high school graduate Service: No Tobacco: Smoking Status: Never smoker Alcohol: alcohol intake: never Substance Use: substance use type: does not use Dietary Habits: caffeine: Yes Review Of Systems (GEN) - Review of Systems Generalized/Overall Review: Absent: Weakness, Chills, Fever EENTM: Present: No Symptoms Reported Respiratory: Present: Shortness of Breath. Absent: Cough Cardiac: Present: Edema. Absent: Chest Pain, Palpitations Abdominal: Absent: Nausea, Vomiting Genitourinary: Absent: Burning, Frequency Musculoskeletal: Present: No Symptoms Reported Neurological: Absent: Headache, Weakness Skin: Present: No Symptoms Reported Endocrine: Present: No Symptoms Reported Immunizations: IMMUNIZATION HX Immunizations Up to Date Yes History of Influenza Vaccine No Hx Pneumococcal Vaccination No Allergies/Adverse Reactions: Allergies Allergy/AdvReac Type Severity Reaction Status Date / Time tetanus and diphtheria Allergy Intermediate WHOLE ARM Verified 07/31/20 21:21 toxoids SWELLED UP [Tetanus&Diphtheria Toxoid] Penicillins Allergy Mild Hives Verified 07/31/20 21:21 atorvastatin calcium AdvReac Mild Diarrhea Verified 07/31/20 21:21 [From Lipitor] levofloxacin [From Levaquin] AdvReac Mild UPSET Verified 07/31/20 21:21 STOMACH tape Allergy Mild RASH Uncoded 07/31/20 21:21 Home Medications: HOME MEDICATIONS Ascorbic Acid [Vitamin C] 500 mg PO DAILY 10/02/15 [Last Taken Unknown] Ferrous Sulfate, Dried [Iron] 159 mg PO Q2D 06/24/16 [Last Taken Unknown] Aspirin [Aspir-Low] 81 mg PO DAILY 11/03/16 [Last Taken Unknown] blood sugar diagnostic See Dose Instructions .ROUTE .MEDSUPPLY #20 ea 11/17/17 [Last Taken Unknown] brimonidine 0.2 % eye drops 1 drp LEFTEYE TID 11/17/17 [Last Taken Unknown] lancets 28 gauge See Dose Instructions .ROUTE .MEDSUPPLY #25 ea 11/17/17 [Last Taken Unknown] rosuvastatin 20 mg tablet 20 mg PO HS 11/17/17 [Last Taken Unknown] vitamin E (dl, acetate) 400 unit capsule 400 unit PO DAILY 11/17/17 [Last Taken Unknown] fluorometholone 0.1 % eye drops,suspension 2 drp LEFTEYE BID ml 02/17/19 [Last Taken Unknown] lancets 28 gauge See Dose Instructions .ROUTE .MEDSUPPLY #100 ea 11/01/19 [Last Taken Unknown] blood sugar diagnostic See Rx Instructions .ROUTE .COMPLEX #100 unknown measurement unit code: strip 03/11/20 [Last Taken Unknown] Lisinopril [Prinivil] 10 mg PO DAILY 07/31/20 [Last Taken Unknown] albuterol sulfate 90 mcg/actuation aerosol inhaler 1 - 2 puff INHALATION Q4H PRN #1 inhaler 07/31/20 [Last Taken Unknown] glipiZIDE [Glipizide] 5 mg PO BID 07/31/20 [Last Taken Unknown] Apixaban [Eliquis] 5 mg PO BID #60 tab 08/01/20 [Last Taken Unknown] Dorzolamide HCl/Timolol Maleat [Dorzolamide-Timolol Eye Drops] 1 drop LEFTEYE BID 08/01/20 [Last Taken Unknown] Furosemide [Lasix] 40 mg PO DAILY PRN #30 tab 08/01/20 [Last Taken Unknown] Latanoprost/Pf [Latanoprost 0.005% Eye Drop] 7.5 ml OP HS 08/01/20 [Last Taken Unknown] Methazolamide 50 mg PO BID 08/01/20 [Last Taken Unknown] Metoprolol Succinate [Toprol Xl] 50 mg PO DAILY #30 tablet.sa 08/01/20 [Last Taken Unknown] Exam - Exam Vital Signs: Vital Signs - Last Taken Temp 36.6 C 08/01/20 11:08 Pulse 101 H 08/01/20 11:08 Resp 16 08/01/20 11:08 BP 122/81 08/01/20 11:08 Pulse Ox 97 08/01/20 11:08 Constitutional: Present: Alert, Oriented x3, Cooperative ENT Exam: Present: hearing grossly normal Respiratory: Present: lungs clear, normal breath sounds Cardiovascular/Chest: Present: no murmur, irregularly irregular Peripheral Pulses: radial (R): 2+, radial (L): 2+ Abdomen: Present: Normal bowel sounds, soft, nontender, nondistended, no rebound tenderness Skin Exam: Present: normal color, warm/dry, no cyanosis Neurologic: Present: no motor/sensory deficits, alert, normal mood/affect Appearance: Present: appropriate appearance, appropriate insight Eye contact: Present: cooperative, good eye contact, normal speech Thoughts: Present: normal thought pattern, no apparent hallucination Diagnostic Studies: Abnormal Lab Results 07/31/20 07/31/20 Range/Units 21:36 21:36 RBC 4.49 L (4.7-6.0) M/mm3 MCV 100.9 H (78-100) fl MCH 33.2 H (27-31) pg Monocytes % 10.0 H (0.0-9) % Basophils % 1.3 H (0.0-1.0) % Carbon Dioxide 22.8 L (24-32.6) mmol/L Anion Gap 16.7 H (6.8-13.8) mmol/L BUN 27 H (6-23) mg/dL Creatinine 1.84 H (0.4-1.4) mg/dL Est GFR (Non-Af Amer) 38 L (60-130) mL/min Random Glucose 188 H (70-110) mg/dL B-Natriuretic Peptide 3884 H (5-650) pg/mL Laboratory Results WBC 5.6 K/mm3 (4.0-10.5) 07/31/20 21:36 RBC 4.49 M/mm3 (4.7-6.0) L 07/31/20 21:36 Hgb 14.9 gm/dL (13.5-18.0) 07/31/20 21:36 Hct 45.3 % (42.0-52.0) 07/31/20 21:36 MCV 100.9 fl (78-100) H 07/31/20 21:36 MCH 33.2 pg (27-31) H 07/31/20 21:36 MCHC 32.9 g/dl (32-36) 07/31/20 21:36 RDW 12.9 % (11.5-14.0) 07/31/20 21:36 Plt Count 172 K/mm3 (150-450) 07/31/20 21:36 MPV 9.8 fl (8-11.3) 07/31/20 21:36 Immature Gran % (Auto) 0.40 % (0.001-0.429) 07/31/20 21:36 Immature Gran # (Auto) 0.02 K/mm3 (0.000-0.0310) 07/31/20 21:36 Neutrophils % 55.6 % (42-75.0) 07/31/20 21:36 Lymphocytes % 29.7 % (20-51) 07/31/20 21:36 Monocytes % 10.0 % (0.0-9) H 07/31/20 21:36 Eosinophils % 3.0 % (0.0-3.0) 07/31/20 21:36 Basophils % 1.3 % (0.0-1.0) H 07/31/20 21:36 Nucleated RBC % 0.0 k/mm3 (0-1) 07/31/20 21:36 Neutrophils # 3.1 K/mm3 (1.3-6.0) 07/31/20 21:36 Lymphocytes # 1.66 k/mm3 (1.5-3.5) 07/31/20 21:36 Monocytes # 0.6 k/mm3 (0.0-1.0) 07/31/20 21:36 Eosinophils # 0.2 k/mm3 (0.0-0.7) 07/31/20 21:36 Absolute Basophils 0.1 k/mm3 (0.0-0.1) 07/31/20 21:36 Sodium 141 mmol/L (132-142) 07/31/20 21:36 Plasma Sodium 142 mmol/L (130-142) 07/31/20 21:36 Potassium 4.5 mmol/L (3.4-4.6) 07/31/20 21:36 Chloride 106 mmol/L (97-106) 07/31/20 21:36 Carbon Dioxide 22.8 mmol/L (24-32.6) L 07/31/20 21:36 Anion Gap 16.7 mmol/L (6.8-13.8) H 07/31/20 21:36 BUN 27 mg/dL (6-23) H 07/31/20 21:36 Creatinine 1.84 mg/dL (0.4-1.4) H 07/31/20 21:36 Est GFR (Non-Af Amer) 38 mL/min (60-130) L 07/31/20 21:36 BUN/Creatinine Ratio 14.7 (9.0-21.6) 07/31/20 21:36 Random Glucose 188 mg/dL (70-110) H 07/31/20 21:36 Lactic Acid, Venous 1.4 mmol/L (0.4-2.0) 07/31/20 21:36 Calcium 9.2 mg/dL (7.9-10.9) 07/31/20 21:36 Calcium Adj for Albumin 9.0 mg/dL (8.4-10.2) 07/31/20 21:36 Total Bilirubin 0.6 mg/dL (0.0-1.1) 07/31/20 21:36 AST 22 U/L (0-48) 07/31/20 21:36 ALT 30 U/L (19-67) 07/31/20 21:36 Alkaline Phosphatase 86 U/L (50-170) 07/31/20 21:36 Troponin I Less than 0.017 ng/mL (0.00-0.10) 07/31/20 21:36 B-Natriuretic Peptide 3884 pg/mL (5-650) H 07/31/20 21:36 Total Protein 7.2 gm/dL (6.2-8.2) 07/31/20 21:36 Albumin 3.8 gm/dl (3.4-5.0) 07/31/20 21:36 SARS-CoV-2 (PCR) Not detected (NotDetected) 07/31/20 22:16 Assessment/Plan - Narrative Narrative: Parish is a 75 yo male with new onset atrial fibrillation with rapid ventricular response. His only presenting symptom was shortness of breath and he also has evidence of acute CHF by elevated BNP and pulmonary vascular congestion on chest xray. It is hard to say how long he has had atrial fibrillation and whether this was the cause to his shortness of breath or the pulmonary fluid from CHF. He was given IV lasix in the ER and diuresed already. He is feeling significantly better. He remains in atrial fibrillation but his rate is controlled with an increase his his home metoprolol. He will be started on Eliquis for anticoagulation. Will admit to observation following diuresis. If he continues to do well will anticipate discharge to home today. Unclear if his atrial fibrillation was the precipitating cause to his CHF or vice versa. - Assessment/Plan (1) Acute diastolic CHF (congestive heart failure) Problem: Acute (2) Atrial fibrillation with RVR Problem: Acute (3) Atrial fibrillation Problem: Acute Qualifiers: Atrial fibrillation type: unspecified Qualified Code(s): I48.91 - Unspecified atrial fibrillation (1) Acute diastolic CHF (congestive heart failure) Problem: Acute (2) Atrial fibrillation with RVR Problem: Acute (3) Atrial fibrillation Problem: Acute Qualifiers: Atrial fibrillation type: unspecified Qualified Code(s): I48.91 - Unspecified atrial fibrillation Date of Discharge:: 08/01/20 Hospital Course: Parish is a 75 yo male that presented to the ER with acute shortness of breath. He had noticed an increase in weight of 4lbs. He had labs showing elevated BNP and pulmonary congestion on chest xray. He was treated with IV lasix and diuresed well. He was also found to have atrial fibrillation with RVR. His metoprolol dose of 25mg was increased to 50mg to improve rate control. He will be started on eliquis for anticoagulation due to atrial fibrillation. After diuresing well he reports feeling back to his normal. I discussed watching his salt intake and monitoring his weight. He reports he already tries to do these things. I will give him an rx for furosemide to take prn for weight gain (more than 2lbs in 24 hours or more than 5lbs in a week) or for edema. 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 Ulloa. Procedures Performed: none Results and Findings: Lab Pending Results 07/31/20 21:36: WBC 5.6, RBC 4.49 L, Hgb 14.9, Hct 45.3, MCV 100.9 H, MCH 33.2 H, MCHC 32.9, RDW 12.9, Plt Count 172, MPV 9.8, Immature Gran % (Auto) 0.40, Immature Gran # (Auto) 0.02, Neutrophils % 55.6, Lymphocytes % 29.7, Monocytes % 10.0 H, Eosinophils % 3.0, Basophils % 1.3 H, Nucleated RBC % 0.0, Neutrophils # 3.1, Lymphocytes # 1.66, Monocytes # 0.6, Eosinophils # 0.2, Absolute Basophils 0.1 07/31/20 21:36: Sodium 141, Plasma Sodium 142, Potassium 4.5, Chloride 106, Carbon Dioxide 22.8 L, Anion Gap 16.7 H, BUN 27 H, Creatinine 1.84 H, Est GFR (Non-Af Amer) 38 L, BUN/Creatinine Ratio 14.7, Random Glucose 188 H, Calcium 9.2, Calcium Adj for Albumin 9.0, Total Bilirubin 0.6, AST 22, ALT 30, Alkaline Phosphatase 86, Troponin I Less than 0.017, B-Natriuretic Peptide 3884 H, Total Protein 7.2, Albumin 3.8 07/31/20 21:36: Lactic Acid, Venous 1.4 07/31/20 22:16: SARS-CoV-2 (PCR) Not detected Discharge Location: Home Disposition: Home self-care Condition: Good Discharge Activity: Activity as tolerated Discharge Diet: Low salt Referrals: Aria Solomon MD [Primary Care Provider] - One Week Tristan Ulloa MD [Consulting Physician] - DOC,OUTSIDE [Non Staff Physicians] - (Cardiology - Dr. Ulloa, next available for new onset CHF and atrial fibrillation) Problem Oriented Discharge Instructions to Patient/Family: Atrial Fibrillation, [id number], CHF Patient Instructions Additional Patient Instructions (free text): Follow up with Dr. Solomon on 08-09-20 at 1:30pm. Cardiology will see you in [facility] on 08-12-20 at 12:30pm and you will be seeing Aminah Woods NP of Dr. Oakley. Prescriptions (Any new or edited meds): Apixaban [Eliquis] 5 mg PO BID #60 tab Transmission Status: Received by [facility] Furosemide [Lasix] 40 mg PO DAILY PRN #30 tab PRN Reason: edema Transmission Status: Received by [facility] Metoprolol Succinate [Toprol Xl] 50 mg PO DAILY #30 tablet.sa Transmission Status: Received by [facility] Complete Home Medications List: Complete Home Medication List: Ascorbic Acid [Vitamin C] 500 mg PO DAILY 10/02/15 Ferrous Sulfate, Dried [Iron] 159 mg PO Q2D 06/24/16 Aspirin [Aspir-Low] 81 mg PO DAILY 11/03/16 blood sugar diagnostic See Dose Instructions .ROUTE .MEDSUPPLY #20 ea 11/17/17 brimonidine 0.2 % eye drops 1 drp LEFTEYE TID 11/17/17 lancets 28 gauge See Dose Instructions .ROUTE .MEDSUPPLY #25 ea 11/17/17 rosuvastatin 20 mg tablet 20 mg PO HS 11/17/17 vitamin E (dl, acetate) 400 unit capsule 400 unit PO DAILY 11/17/17 fluorometholone 0.1 % eye drops,suspension 2 drp LEFTEYE BID ml 02/17/19 lancets 28 gauge See Dose Instructions .ROUTE .MEDSUPPLY #100 ea 11/01/19 blood sugar diagnostic See Rx Instructions .ROUTE .COMPLEX #100 unknown measurement unit code: strip 03/11/20 Lisinopril [Prinivil] 10 mg PO DAILY 07/31/20 albuterol sulfate 90 mcg/actuation aerosol inhaler 1 - 2 puff INHALATION Q4H PRN #1 inhaler 07/31/20 glipiZIDE [Glipizide] 5 mg PO BID 07/31/20 Apixaban [Eliquis] 5 mg PO BID #60 tab 08/01/20 Dorzolamide HCl/Timolol Maleat [Dorzolamide-Timolol Eye Drops] 1 drop LEFTEYE BID 08/01/20 Furosemide [Lasix] 40 mg PO DAILY PRN #30 tab 08/01/20 Latanoprost/Pf [Latanoprost 0.005% Eye Drop] 7.5 ml OP HS 08/01/20 Methazolamide 50 mg PO BID 08/01/20 Metoprolol Succinate [Toprol Xl] 50 mg PO DAILY #30 tablet.sa 08/01/20
[2020-08-01 13:12] VITALS: BP 117/74
[2020-08-01] MEDS ORDERED: ROSUVASTATIN CALCIUM 20 MG TABLET PO SCH (21:00)
[2020-08-01] MEDS ORDERED: LATANOPROST 25 DROP BTL OP SCH (21:00)
[2020-08-01] MEDS ORDERED: TIMOLOL MALEATE/DORZOLAM HCL 100 DROP BTL LEFTEYE SCH (21:00)
== END 2020-08-01 13:30 | disposition home or self-care (01) ==
LOC: MS 21:07 → ER 21:07 → MS 23:50
PROVIDERS: ADMIT Family Medicine; ATTEND Family Medicine